=== PATIENT | female | born 1980 | race African-American/Black ===

== ENCOUNTER 2018-07-23 18:13 | Emergency (ER) | payer OTHER ==
[~2018-07-23] VITALS: Ht 177.8 cm; Wt 78.9 kg
[2018-07-23 18:18] VITALS: Ht 177.8 cm; Wt 78.9 kg
[2018-07-23 19:11] VITALS: BP 128/82
== END 2018-07-23 19:11 | disposition home or self-care (01) ==
LOC: ED 18:13
DX: S20.219A Contusion of unspecified front wall of thorax, initial encounter (principal); V49.88XA Car occupant (driver) (passenger) injured in other specified transport accidents, initial encounter; Y93.I9 Activity, other involving external motion; Y92.413 State road as the place of occurrence of the external cause; Y99.8 Other external cause status
CPT/HCPCS: Q0092